=== PATIENT | male | born 1980 | race Caucasian/White ===

== ENCOUNTER 2022-05-01 06:48 | Emergency (ER) | payer OTHER ==
[2022-05-01] MEDS ORDERED: VIBRAMYCIN100 MG PO (08:29)
[2022-05-01] MEDS ORDERED: NORCO 5-325 TA1 EACH PO (08:29)
[2022-05-01] MEDS ORDERED: ONDANSETRON ODT4 MG PO (08:55)
[2022-05-01 09:09] LABS: BASOPHIL 0.4 % (0-2); EOSINOPHIL 0.4 & (0-5); HCT 40.6 % (42.0-52.0); HGB 14.1 g/dl (13.2-18.0); LYMPHOCYTE 9.6 % (15-48); MCH 29.3 pg (25.0-31.0); MCHC 34.7 g/dL (32.0-36.0); MCV 84.2 fL (78.0-100.0); MONOCYTE 7.7 % (0-12); MPV 10.9 fL (6.0-9.5); NEUTROPHIL 81.7 % (41-80); PLT 192 K/uL (150-400); RBC 4.82 M/uL (4.70-6.00); RDW 12.7 % (11.5-14.0); WBC 14.24 K/uL (4.0-10.5)
[2022-05-01 09:24] LABS: BUN/CREAT RATIO (CALC) 15.5 RATIO; CREATININE 0.84 mg/dL (0.67-1.17); POTASSIUM 3.9 mmol/L (3.5-5.1)
[2022-05-01 09:34] LABS: CORONAVIRUS 2019 SARS-COV-2 NEGATIVE (NEGATIVE); INFLUENZA A NAA NEGATIVE (NEGATIVE)
== END 2022-05-01 09:10 | disposition home or self-care (01) ==
LOC: FER 06:48
PROVIDERS: Internal Medicine
DX: L02.31 Cutaneous abscess of buttock (principal); R00.0 Tachycardia, unspecified; Z20.822 Contact with and (suspected) exposure to COVID-19; Z90.49 Acquired absence of other specified parts of digestive tract; Z87.891 Personal history of nicotine dependence
CPT/HCPCS: 36415; 80048; 85025; 96372; J0696; J1100; J1170; U0002